=== PATIENT | female | born 1960 | race American Indian/Alaskan Native ===

== ENCOUNTER 2018-03-13 18:29 | Observation (INO) | payer OTHER ==
[2018-03-13 19:07] VITALS: BMI 30.4
--- NOTE | 2018-03-13 19:48 | PDOC ---
History of Present Illness - General Chief Complaint: Chest Pain Stated Complaint: PAIN, ACUTE - History of Present Illness Initial Comments: The patient is a 57F w/ a history of T2DM and HTN who presents for 2d of intermittent, sharp/burning, non-radiating, left-sided chest pain, that radiates towards her flank as a 'tingling' sensation. The patient is not able to identify any exacerbating or alleviating factors. The patient has never had pain like this before. She states it most commonly occurs at rest and will resolve spontaneously from minutes to hours. The patient denies fevers/chills, SOB, abdominal pain, N/V/C/D, dysuria, or blood in her urine or stool. She denies rash, injury, or recent cough/illness. 03/13/18 19:43 Past History - Past Medical History Allergies/Adverse Reactions: Allergies Allergy/AdvReac Type Severity Reaction Status Date / Time Sulfa (Sulfonamide Allergy Intermediate Hives Verified 03/13/18 20:24 Antibiotics) Home Medications: Ambulatory Orders metFORMIN XR [Glucophage Xr -] 500 mg PO BID 10/17/14 Aspirin 81 mg PO DAILY 03/13/18 Liraglutide [Victoza -] 1.2 mg SQ DAILY@0700 03/13/18 Metoprolol Succinate [Toprol Xl] 25 mg PO DAILY 03/13/18 COPD: No Diabetes: Yes HTN: Yes Hypercholesterolemia: Yes - Suicide/Smoking/Psychosocial Hx Smoking History: Never smoked Hx Alcohol Use: No Drug/Substance Use Hx: No Review of Systems - Review of Systems Able to Perform ROS?: Yes Comments:: GENERAL/CONSTITUTIONAL: No fever or chills. No weakness HEAD, EYES, EARS, NOSE AND THROAT: No acute change in vision. No ear pain or discharge. No sore throat CARDIOVASCULAR: per HPI RESPIRATORY: No cough, wheezing, or hemoptysis GASTROINTESTINAL: No nausea, vomiting, diarrhea or constipation GENITOURINARY: No dysuria, frequency, or change in urination MUSCULOSKELETAL: No joint or muscle swelling or pain. No neck or back pain SKIN: No rash NEUROLOGIC: No vertigo, loss of consciousness, or change in strength/sensation HEMATOLOGIC/LYMPHATIC: No anemia, easy bleeding, or history of blood clots ALLERGIC/IMMUNOLOGIC: No hives or skin allergy 03/13/18 20:32 Is the patient limited Belgian proficient: No *Physical Exam - Vital Signs Last Vital Signs Temp Pulse Resp BP Pulse Ox 98.7 F 90 20 156/79 99 03/13/18 19:00 03/13/18 19:00 03/13/18 19:00 03/13/18 19:00 03/13/18 19:00 - Physical Exam Comments: GENERAL: Awake, alert, and fully oriented, in no acute distress HEAD: No signs of trauma, normocephalic, atraumatic EYES: PERRL, EOMI, sclera anicteric, conjunctiva clear ENT: Hearing grossly normal, nares patent, oropharynx clear without exudates. Moist mucosa NECK: Normal ROM, supple, no lymphadenopathy CHEST: No rash, no TTP on lateral compression LUNGS: No distress, speaks full sentences, clear to auscultation bilaterally HEART:Regular rate and rhythm, normal S1 and S2, no murmurs appreciated, peripheral pulses normal and equal bilaterally ABDOMEN: Soft, nontender, normoactive bowel sounds. No guarding, no rebound. No masses EXTREMITIES : Normal inspection, Normal range of motion, no edema. No clubbing or cyanosis NEUROLOGICAL: Cranial nerves II through XII grossly intact. Normal speech, normal gait, no focal sensorimotor deficits SKIN: Warm, Dry, normal turgor, no rashes or lesions noted 03/13/18 20:33 Heart Score/ECG Review - History History: Slightly suspicious - Electrocardiogram EKG: Normal - Age Age: 45-65 - Risk Factors Risk Factors Heart Score: Yes Hx Hypertension, Yes Hx Diabetes, Yes Hx Obesity Based on the list above the patient has:: >/=3 risk factors or Hx atherosclerotic disease - Troponin Troponin: </= normal limit - Score Heart Score - Total: 3 ED Treatment Course - LABORATORY CBC & Chemistry Diagram: 03/13/18 19:40 03/13/18 19:40 - RADIOLOGY Radiology Studies Ordered: Category Date Time Status CHEST PA & LAT [RAD] Stat Radiology 03/13/18 19:38 Ordered Medical Decision Making - Medical Decision Making The patient is a 57F w/ a history of T2DM and HTN who presents with 2d of L- sided, intermittent, sharp/burning chest pain that occurs mostly at rest. FHx sig for F 2/2 IA and Brother with hx of IA HEART Score 3 ED Course CMP, CBC, Cardiac Profile ECG CXR Will plan for Obs Tele admission for ACS r/o given strong family history and new onset of symptoms 03/13/18 19:53 Initial Trop I neg CXR w/o evidence of acute cardiopulmonary pathology 03/13/18 20:40 Lytes wnl No leukocytosis ECG NSR without signs of acute ischemia Patient states pain is still 4-5/10 at this time but does not desire pain medication. She is laying comfortably in bed, in no distress, speaking in full sentences on room air. Dispo: Tele obs for ACS r/o. Will repeat Trop I at three hours 03/13/18 21:04 *DC/Admit/Observation/Transfer Diagnosis at time of Disposition: ACS (acute coronary syndrome) HTN (hypertension) Qualifiers: Hypertension type: unspecified Qualified Code(s): I10 - Essential (primary) hypertension T2DM (type 2 diabetes mellitus) Qualifiers: Diabetes mellitus fci insulin use: unspecified fci insulin use status Diabetes mellitus complication status: with unspecified complications Qualified Code(s): E11.8 - Type 2 diabetes mellitus with unspecified complications - Discharge Dispostion Condition at time of disposition: Good Decision to Admit order: Yes - Referrals - Patient Instructions - Post Discharge Activity
--- NOTE | 2018-03-13 19:50 | PDOC ---
Attending Attestation - HPI HPI: 03/13/18 20:55 The patient is a 57-year-old female with past medical history significant for HTN, HLD, and DM presents to the emergency department with 2 days of chest pain. The patient reports the symptoms have been intermittent since onset. The patient indicates the symptoms are located on the L. lower chest pain, burning in character, with intermittent diffusion across the chest. The patient states the pain is strongest while shes driving or sleeping on her side, with a tingling sensation radiating down the L. flank region. The patient reports the symptoms are slightly improved by remaining still and denies exacerbation with deep breathing. The patient reports an additional concern of a headache. Denies recent illness, shortness of breath, nausea, vomiting, diarrhea, constipation, cough or injury to the chest wall. Allergies: Sulfa Social history: No past or present use of tobacco, alcohol or recreational drug use. Surgical history: None reported. PCP: Adam Waller - Physicial Exam PE: 03/13/18 20:57 GENERAL: The patient is in no acute distress. LUNGS: Breath sounds equal, clear to auscultation bilaterally. No wheezes, and no crackles. HEART:Regular rate and rhythm, normal S1 and S2 without murmur, rub or gallop. ABDOMEN: Soft, nontender, normoactive bowel sounds. No guarding, no rebound. No masses palpable. EXTREMITIES: Normal range of motion, no edema. No clubbing or cyanosis. No erythema, or tenderness. - Medical Decision Making 03/13/18 20:55 Documentation prepared by Sharyn Pang, acting as medical receptionist for Melissa Camarillo MD. <Sharyn Pang - Last Filed: 03/13/18 20:57> - Resident Resident Name: Jose Francisco Stephens - ED Attending Attestation I have performed the following: I have examined & evaluated the patient, The case was reviewed & discussed with the resident, I agree w/resident's findings & plan, Exceptions are as noted - Medical Decision Making 03/13/18 20:41 57 yo F presenting to the ER with 3 days intermittent chest pain No shortness of breath, nausea, diaphoresis Pt h/o HTN, DM, strong family history. Will plan to place on observation After labs 03/13/18 20:54 Laboratory Tests 03/13/18 19:40 Creatine Kinase 66 Troponin I < 0.02 CXR: EKG: Twelve-lead EKG was performed and reviewed by me. There is normal sinus rhythm with a normal rate. The axis is normal. The intervals are normal. There are no ST or T wave abnormalities. Impression: Normal twelve-lead EKG 03/13/18 22:05 Place on observation Clinical Impression: chest pain, initial presentation <Melissa Camarillo - Last Filed: 03/15/18 07:51> Heart Score/ECG Review - History History: Slightly suspicious - Electrocardiogram EKG: Normal - Age Age: 45-65 - Risk Factors Risk Factors Heart Score: Yes Hx Hypertension, Yes Hx Diabetes, Yes Hx Obesity Based on the list above the patient has:: >/=3 risk factors or Hx atherosclerotic disease - Troponin Troponin: </= normal limit - Score Heart Score - Total: 3 <Melissa Camarillo - Last Filed: 03/15/18 07:51>
[2018-03-13 19:56] LABS: HEMATOCRIT 35.6 % (32.4-45.2); HEMOGLOBIN 11.8 GM/dL (10.7-15.3); MCH 25.3 pg (25.7-33.7); MEAN CELL VOLUME 76.6 fl (80-96); MEAN PLT VOLUME 8.6 fl (7.5-11.1); PLATELET COUNT 350 K/MM3 (134-434); RBC 4.64 M/mm3 (3.60-5.2); RDW 14.1 % (11.6-15.6); WHITE BLOOD COUNT 12.6 K/mm3 (4.0-10.0)
[2018-03-13 20:26] LABS: ALBUMIN 3.9 g/dl (3.4-5.0); ALK PHOS 79 U/L (45-117); ANION GAP 8 MMOL/L (8-16); BILIRUBIN,TOTAL 1.1 mg/dL (0.2-1); BLOOD UREA NITROGEN 10 mg/dL (7-18); CALCIUM 9.5 mg/dL (8.5-10.1); CHLORIDE 108 mmol/L (98-107); CO2 26 mmol/L (21-32); CREATININE 0.6 mg/dL (0.55-1.3); GLUCOSE,RANDOM 75 mg/dL (74-106); POTASSIUM 4.4 mmol/L (3.5-5.1); SGOT/AST 16 U/L (15-37); SGPT/ALT 31 U/L (13-61); SODIUM 142 mmol/L (136-145); TOT PROT 7.7 g/dl (6.4-8.2)
--- NOTE | 2018-03-13 21:34 | PN ---
Teaching Attending Note Name of Resident: Oracio Teresa ATTENDING PHYSICIAN STATEMENT I saw and evaluated the patient. I reviewed the resident's note and discussed the case with the resident. I agree with the resident's findings and plan as documented. SUBJECTIVE: Patient is a 57 year old woman with a history of NIDDM and HTN who presents for intermittent, sharp/burning, non-radiating, left-sided chest pain for two days. Pain radiates towards her flank as a 'tingling' sensation. The patient is not able to identify any exacerbating or alleviating factors. The patient has never had pain like this before. She states it most commonly occurs at rest and will resolve spontaneously from minutes to hours. The patient denies fevers/chills, SOB, abdominal pain, nausea, vomiting or dysuria. She has a FH of CAD. OBJECTIVE: Alert Vital Signs Period Temp Pulse Resp BP Sys/Brennan Pulse Ox Last 24 Hr 98.7 F 82-90 17-20 156-170/79-95 98-99 HEENT: No Jaundice, eye redness or discharge, PERRLA, EOMI. Normocephalic, atraumatic. External ears are normal and hearing is grossly intact. No nasal discharge. Neck: Supple, nontender. No palpable adenopathy or thyromegaly. No JVD Chest: Good effort. Clear to auscultation and percussion. Heart: Regular. No S3, rub or murmur Abdomen: Not distended, soft, nontender and no HSM. No rebound or guarding. Normoactive bowel sounds. Ext: Peripheral pulses intact. No leg edema. Skin: Warm and dry. No petechiae, rash or ecchymosis. Neuro: Alert. Oriented x3. CN 2-12 grossly intact. Sensation grossly intact in all four extremities and DTR are symmetric. Home Medications Medication Instructions Recorded metFORMIN XR [Glucophage Xr -] 500 mg PO BID 10/17/14 Aspirin 81 mg PO DAILY 03/13/18 Liraglutide [Victoza -] 1.2 mg SQ DAILY@0700 03/13/18 Metoprolol Succinate [Toprol Xl] 25 mg PO DAILY 03/13/18 Abnormal Lab Results 03/13/18 03/13/18 19:40 19:40 WBC 12.6 H MCV 76.6 L MCH 25.3 L Chloride 108 H Total Bilirubin 1.1 H ASSESSMENT AND PLAN: 1. Chest pain - Pain is atypical, but she has risk factors as well as a family history of CAD. No acute changes of ACS on EKG. Will admit to telemetry to rule out ACS. Get ECHO, fasting lipids and consult cardiology. Add Lisinopril 20 mg po bid and strive for normotension. Leukocytosis is unexplained. CXR show RLL atelectasis. She is afebrile. Will repeat CBC. 2. DM - For now, we will hold the home diabetes drugs and implement sliding scale insulin regimen. Provide comprehensive diabetes care with patient teaching and counseling about the importance of euglycemia, eye care and foot care. 3. Obesity - Will provide patient all the necessary assistance , counseling and positive reinforcement to facilitate weight loss. Consult nozzle and sleeve worker. 4. DVT prophylaxis - Lovenox 40 mg SQ q 24 hours. 5. Advance directives - Full code
--- NOTE | 2018-03-13 22:07 | HP ---
CHIEF COMPLAINT: chest pain PCP: HISTORY OF PRESENT ILLNESS: Patient is a 57 year old female with history significant for anxiety, depression , HTN, HLD, DM, presents with chest pain ongoing for the past 2-3 days. Pain is sharp, localized to the midline chest, as well as left lateral chest, and radiates interiorly along the flank, described as "tingling" in nature. States that the pain occurs mainly during rest when she is lying down and is associated with headache. Headache described as tightness around the head, with blurry vision that resolves shortly afterwards. Denies falls, trauma to head, loss of consciousness. Denies fevers, chills, shortness of breath, abdominal pain, nausea, vomiting, diarrhea, constipation, dysuria, hematuria. ER course was notable for: (1) CBC, CMP (2) EKG, Troponin 0.02 (3) CXR Recent Travel: PAST MEDICAL HISTORY: anxiety, depression, HTN, HLD, DM PAST SURGICAL HISTORY: Social History: Smoking: denies Alcohol: denies Drugs: denies Family History: Allergies Sulfa (Sulfonamide Antibiotics) Allergy (Intermediate, Verified 03/13/18 20:24) Hives HOME MEDICATIONS: Home Medications Medication Instructions Recorded metFORMIN XR [Glucophage Xr -] 500 mg PO BID 10/17/14 Aspirin 81 mg PO DAILY 03/13/18 Liraglutide [Victoza -] 1.2 mg SQ DAILY@0700 03/13/18 Metoprolol Succinate [Toprol Xl] 25 mg PO DAILY 03/13/18 REVIEW OF SYSTEMS CONSTITUTIONAL: Absent: fever, chills, diaphoresis, generalized weakness. HEENT: ADmits: blurry vision. Absent: rhinorrhea, nasal congestion, throat swelling, difficulty swallowing, mouth swelling, CARDIOVASCULAR: Admits: chest pain, palpitations, Absent: syncope, irregular heart rate, peripheral edema RESPIRATORY: Absent: cough, shortness of breath, wheezing, hemoptysis GASTROINTESTINAL: Absent: abdominal pain, abdominal distension, nausea, vomiting, diarrhea, constipation, melena, hematochezia GENITOURINARY: Absent: dysuria, frequency, urgency, hesitancy, hematuria, SKIN: Absent: rash, pruritis, pallor NEUROLOGIC: Admits headache, parasthesias. Absent: focal weakness, dizziness, unsteady gait , bladder or bowel incontinence PSYCHIATRIC: Admits: anxiety, depression. Absent: suicidal or homicidal ideation, hallucinations. PHYSICAL EXAMINATION Vital Signs - 24 hr 03/13/18 03/13/18 19:00 20:28 Temperature 98.7 F Pulse Rate 90 82 Pulse Rate [ 82 Left Radial] Respiratory 20 17 Rate Blood Pressure 156/79 Blood Pressure 170/95 [Right] O2 Sat by Pulse 99 98 Oximetry (%) GENERAL: Awake, alert, and fully oriented, in no acute distress. HEAD: Normal with no signs of trauma. EYES: Pupils equal, round and reactive to light, extraocular movements intact, sclera icteric b/l, conjunctiva clear. EARS, NOSE, THROAT: Ears normal, nares patent, oropharynx clear without exudates. Moist mucous membranes. NECK: Normal range of motion, supple without lymphadenopathy. LUNGS: Breath sounds equal, clear to auscultation bilaterally. No wheezes, and no crackles. No accessory muscle use. HEART: Regular rate and rhythm, normal S1 and S2 with 2/6 holosystolic murmur at left sternal border. Chest pain partially reproducible upon palpation, however not at full intensity that she feels. ABDOMEN: Soft, nontender, not distended, normoactive bowel sounds, no guarding, no rebound, no masses. No hepatomegaly or splenomegaly. MUSCULOSKELETAL: Normal range of motion at all joints. No bony deformities or tenderness. UPPER EXTREMITIES: 2+ pulses, warm. Strength 5/5 b/l upper extremities. LOWER EXTREMITIES: 2+ pulses, warm, well-perfused. No calf tenderness b/l. No peripheral edema b/l. Strength 5/5 b/l lower extremities. NEUROLOGICAL: Cranial nerves II-XII intact. Normal speech. PSYCHIATRIC: Cooperative. Good eye contact. Appropriate mood and affect upon my encounter. SKIN: Warm, dry, normal turgor, no rashes or lesions noted. Laboratory Results - last 24 hr 03/13/18 03/13/18 19:40 19:40 WBC 12.6 H RBC 4.64 Hgb 11.8 Hct 35.6 MCV 76.6 L MCH 25.3 L MCHC 33.0 RDW 14.1 Plt Count 350 MPV 8.6 Sodium 142 Potassium 4.4 Chloride 108 H Carbon Dioxide 26 Anion Gap 8 BUN 10 Creatinine 0.6 Creat Clearance w eGFR > 60 Random Glucose 75 Calcium 9.5 Total Bilirubin 1.1 H AST 16 ALT 31 Alkaline Phosphatase 79 Creatine Kinase 66 Troponin I < 0.02 Total Protein 7.7 Albumin 3.9 ASSESSMENT/PLAN: Patient is a 57 year old female with history significant for anxiety, depression , HTN, HLD, DM, presents with chest pain ongoing for the past 2-3 days. Chest pain -Atypical, partially reproducible upon palpation. Associated with anxiety- provoking thoughts, occurign at rest. -EKG showed NSR at 86 BPM without ischemic changes -First troponin 0.02 -F/U serial troponins, and EKG -Cardiac monitoring -F/U cardiac ECHO -F/U lipid panel -F/U cardiology consult (Dr. Monika Mclain) Leukocytosis -Unclear etiology -CXR shows ?RLL atelectasis. Will F/U official read. -F/U UA Hypertension -Continue Metoprolol 25mg PO daily -Lisinopril 20mg PO BID Diabetes -Hold oral hypoglycemics -ISS -BGM ACHS FEN -No IV fluids. Encourage judicious oral hydration -Will follow CMP -Diabetic diet Prophylaxis -Lovenox 40mg subq TID Disposition -Telemetry observation Visit type - Emergency Visit Emergency Visit: Yes ED Registration Date: 03/13/18 Care time: The patient presented to the Emergency Department on the above date and was hospitalized for further evaluation of their emergent condition. - New Patient This patient is new to me today: Yes Date on this admission: 03/14/18 - Critical Care Critical Care patient: No Hospitalist Screening - Colonoscopy Questionnaire Colonoscopy Questionnaire: Colonoscopy Questionnaire - Patient: 50 - 75 years old and never had a screening colonoscopy: Unknown History of colon or rectal polyps, or CA: Unknown History of IBD, Crohn's disease or UC: Unknown History of abdominal radiation therapy as a child: Unknown - Relative: 1 with colon or rectal CA, or polyps at age 60 or younger: Unknown Colon or rectal CA diagnosed at age 45 or younger: Unknown Multiple relatives with colon or rectal CA: Unknown - Outcome: Screening Result: Negative Screen
[2018-03-13] MEDS ORDERED: LISINOPRIL 20 MG TABLET (FP) PO ONE (22:12)
[2018-03-13] MEDS ORDERED: LISINOPRIL 20 MG TABLET (FP) ONE (22:21)
[2018-03-13 23:17] LABS: URINE APPEARANCE CLEAR; URINE BILIRUBIN NEGATIVE (<2.0 mg/dL); URINE COLOR LTYELLOW; URINE GLUCOSE (UA) NEGATIVE (NEGATIVE); URINE KETONE NEGATIVE (NEGATIVE); URINE LEUK ESTERASE NEGATIVE (NEGATIVE); URINE NITRITE NEGATIVE (NEGATIVE); URINE PROTEIN NEGATIVE (NEGATIVE); URINE UROBILINOGEN NEGATIVE mg/dL (0.2-1.0)
[2018-03-14 06:15] LABS: BASO % 0.6 % (0-2.0); EOS % 2.3 % (0-4.5); HEMATOCRIT 34.1 % (32.4-45.2); HEMOGLOBIN 11.2 GM/dL (10.7-15.3); LYMPH % 46.1 % (8-40); MCH 25.2 pg (25.7-33.7); MCHC 32.9 g/dl (32.0-36.0); MEAN CELL VOLUME 76.7 fl (80-96); MEAN PLT VOLUME 8.2 fl (7.5-11.1); MONO % 6.2 % (3.8-10.2); NEUT % 44.8 % (42.8-82.8); PLATELET COUNT 285 K/MM3 (134-434); RBC 4.45 M/mm3 (3.60-5.2); WHITE BLOOD COUNT 12.6 K/mm3 (4.0-10.0)
[2018-03-14 06:56] LABS: ALBUMIN 3.4 g/dl (3.4-5.0); ALK PHOS 73 U/L (45-117); ANION GAP 7 MMOL/L (8-16); BLOOD UREA NITROGEN 14 mg/dL (7-18); CALCIUM 8.9 mg/dL (8.5-10.1); CHLORIDE 105 mmol/L (98-107); CO2 26 mmol/L (21-32); CREATININE 0.6 mg/dL (0.55-1.3); GLUCOSE,RANDOM 98 mg/dL (74-106); MAGNESIUM 1.7 mg/dL (1.8-2.4); PHOSPHOROUS 4.5 mg/dL (2.5-4.9); SGOT/AST 18 U/L (15-37); SGPT/ALT 29 U/L (13-61); SODIUM 139 mmol/L (136-145)
[2018-03-14] MEDS ORDERED: MAGNESIUM SULF 50% (8.12 MEQ/2 ML-1 GM VIAL) IVPB ONE (08:15)
[2018-03-14] MEDS: LISINOPRIL 20 MG TABLET (FP) PO SCH ×2 (09:37→09:42)
[2018-03-14] MEDS: metoPROLOL SUCCINATE 25 MG TAB.SR.24H (FP) PO SCH ×2 (09:37→09:42)
[2018-03-14 09:45] LABS: CHOLESTEROL 142 mg/dL (50-200); HDL CHOLESTEROL 41 mg/dL (40-60); TRIGLYCERIDES 143 mg/dL (0-150)
[2018-03-14] MEDS ORDERED: CITALOPRAM HYDROBROMIDE 20 MG TABLET (FP) PO ONE (11:51)
[2018-03-14] MEDS ORDERED: clonazePAM 0.5 MG TABLET PO PRN (11:52)
[2018-03-14] MEDS: ENOXAPARIN NA (PORCINE) 40 MG/0.4 ML DISP.SYRIN SQ SCH (12:06)
--- NOTE | 2018-03-14 13:34 | PN ---
Progress Note (short form) - Note Progress Note: Subjective: No fever or chills. No abd pain, No TURNER , nO CP , no SOB. she reported few episodes of sharp CP under her L breast with tingling in LUQ in past 3 days . pain was severe to 10 /10 at some point. it would last 2-3 min and resolve. no relation to exertion. never had Cp before. has strong family h/ premature CAD. had stress test in November and echo and was told it was normal. Objective: Vital Signs: Last Vital Signs Temp Pulse Resp BP Pulse Ox 98 F 88 18 140/80 98 03/14/18 09:00 03/14/18 09:00 03/14/18 09:00 03/14/18 09:00 03/14/18 09:00 Laboratory Results - last 24 hr 03/13/18 03/13/18 03/13/18 19:40 19:40 23:00 WBC 12.6 H RBC 4.64 Hgb 11.8 Hct 35.6 MCV 76.6 L MCH 25.3 L MCHC 33.0 RDW 14.1 Plt Count 350 MPV 8.6 Absolute Neuts (auto) Neutrophils % Lymphocytes % Monocytes % Eosinophils % Basophils % Nucleated RBC % Sodium 142 Potassium 4.4 Chloride 108 H Carbon Dioxide 26 Anion Gap 8 BUN 10 Creatinine 0.6 Creat Clearance w eGFR > 60 POC Glucometer Random Glucose 75 Calcium 9.5 Phosphorus Magnesium Total Bilirubin 1.1 H AST 16 ALT 31 Alkaline Phosphatase 79 Creatine Kinase 66 Troponin I < 0.02 Total Protein 7.7 Albumin 3.9 Triglycerides Cholesterol Total LDL Cholesterol HDL Cholesterol Urine Color Ltyellow Urine Appearance Clear Urine pH 5.0 Ur Specific [place] 1.015 Urine Protein Negative Urine Glucose (UA) Negative Urine Ketones Negative Urine Blood Negative Urine Nitrite Negative Urine Bilirubin Negative Urine Urobilinogen Negative Ur Leukocyte Esterase Negative 03/14/18 03/14/18 03/14/18 00:31 05:03 05:03 WBC 12.6 H RBC 4.45 Hgb 11.2 Hct 34.1 MCV 76.7 L MCH 25.2 L MCHC 32.9 RDW 14.0 Plt Count 285 MPV 8.2 Absolute Neuts (auto) 5.6 Neutrophils % 44.8 Lymphocytes % 46.1 H Monocytes % 6.2 Eosinophils % 2.3 Basophils % 0.6 Nucleated RBC % 0 Sodium 139 Potassium 4.0 Chloride 105 Carbon Dioxide 26 Anion Gap 7 L BUN 14 Creatinine 0.6 Creat Clearance w eGFR > 60 POC Glucometer Random Glucose 98 Calcium 8.9 Phosphorus 4.5 Magnesium 1.7 L Total Bilirubin 1.0 AST 18 ALT 29 Alkaline Phosphatase 73 Creatine Kinase 63 Troponin I < 0.02 Total Protein 7.0 Albumin 3.4 Triglycerides 143 Cholesterol 142 Total LDL Cholesterol 88 HDL Cholesterol 41 Urine Color Urine Appearance Urine pH Ur Specific [place] Urine Protein Urine Glucose (UA) Urine Ketones Urine Blood Urine Nitrite Urine Bilirubin Urine Urobilinogen Ur Leukocyte Esterase 03/14/18 03/14/18 05:03 06:44 WBC RBC Hgb Hct MCV MCH MCHC RDW Plt Count MPV Absolute Neuts (auto) Neutrophils % Lymphocytes % Monocytes % Eosinophils % Basophils % Nucleated RBC % Sodium Potassium Chloride Carbon Dioxide Anion Gap BUN Creatinine Creat Clearance w eGFR POC Glucometer 103 Random Glucose Calcium Phosphorus Magnesium Total Bilirubin AST ALT Alkaline Phosphatase Creatine Kinase Troponin I Total Protein Albumin Triglycerides Cancelled Cholesterol Cancelled Total LDL Cholesterol Cancelled HDL Cholesterol Cancelled Urine Color Urine Appearance Urine pH Ur Specific [place] Urine Protein Urine Glucose (UA) Urine Ketones Urine Blood Urine Nitrite Urine Bilirubin Urine Urobilinogen Ur Leukocyte Esterase Physical Exam: NAD Cv: RRR, no MRG Lungs: CTAB Ext: no edema no TTP over chest wall Assessment/Plan: 57 y/o lady with h/o HTN, depression, hyperlipidemia, anxiety, DM , and family h /o premature CAD, who presented with PC 1- CP: CP characteristics indicate atypical CP. EKG with sinus rhythm with no ischemic changes. trop nl x2. she has strong family hx of premature CAd and has risk factors, but she had a stress test a year ago, which is reassuring - tele - I don't feel a stress test is indicated but will confirm with card - cont her BB , ASA , ARB - if no stress test to be done, then card f/u as out pt 2- HTN: cont ARB and BB 3- Dm ; SSI here meds were confirmed with her, and updated in AUG. if nO stress test is indicated , then dc home . Visit type - Emergency Visit Emergency Visit: Yes ED Registration Date: 03/13/18 Care time: The patient presented to the Emergency Department on the above date and was hospitalized for further evaluation of their emergent condition. - New Patient This patient is new to me today: Yes Date on this admission: 03/14/18 - Critical Care Critical Care patient: No
--- NOTE | 2018-03-14 17:06 | EKG ---
Test Reason : Blood Pressure : / mmHG Vent. Rate : 089 BPM Atrial Rate : 089 BPM P-R Int : 158 ms QRS Dur : 076 ms QT Int : 376 ms P-R-T Axes : 044 003 037 degrees QTc Int : 457 ms NORMAL SINUS RHYTHM NORMAL ECG NO PREVIOUS ECGS AVAILABLE Confirmed by MD Sutton Daniel ([id number]) on 03/14/2018 5:06:40 PM Referred By: Confirmed By:Chun Sutton MD
[2018-03-14] MEDS ORDERED: ATORVASTATIN CA 20 MG TABLET (FP) PO SCH (22:00)
[2018-03-15] MEDS ORDERED: CITALOPRAM HYDROBROMIDE 20 MG TABLET (FP) PO SCH (10:00)
[2018-03-15] MEDS ORDERED: LISINOPRIL 20 MG TABLET (FP) PO SCH (10:00)
[2018-03-15] MEDS ORDERED: metoPROLOL SUCCINATE 25 MG TAB.SR.24H (FP) PO SCH (10:00)
[2018-03-15] MEDS ORDERED: VALSARTAN 160 MG TABLET (UD) PO SCH (10:00)
[2018-03-15] MEDS ORDERED: ASPIRIN 81 MG CHEWABLE TABLETS PO SCH (10:00)
--- NOTE | 2018-03-15 10:31 | CON.CARD ---
Consult Consult Specialty:: Cardiology Referred by:: Hospitalist Medicine Reason for Consultation:: Atypical chest pain - History of Present Illness Chief Complaint: Atypical chest pain History of Present Illness: Patient is a 57 year old woman with a history of NIDDM, hyperlipidemia and HTN who presented for intermittent, sharp/burning, stabbing, non-exertional left- sided chest pain for two days. Pain radiates towards her flank as a 'tingling' sensation. The patient is not able to identify any exacerbating or alleviating factors. The patient has never had pain like this before. She states it most commonly occurs at rest and will resolve spontaneously from minutes to hours. The patient denies fevers/chills, SOB, near or true syncope, palpitations, orthopnea, PND or LE edema. She has a FH of premature CAD. PMD: Adam Barbour [phone] - History Source History Provided By: Patient Limitations to Obtaining History: No Limitations - Alcohol/Substance Use Hx Alcohol Use: No - Smoking History Smoking history: Never smoked Home Medications - Allergies Allergies/Adverse Reactions: Allergies Allergy/AdvReac Type Severity Reaction Status Date / Time Sulfa (Sulfonamide Allergy Intermediate Hives Verified 03/13/18 20:24 Antibiotics) - Home Medications Home Medications: Ambulatory Orders metFORMIN XR [Glucophage Xr -] 1,000 mg PO BID 10/17/14 Aspirin 81 mg PO DAILY 03/13/18 Liraglutide [Victoza -] 1.2 mg SQ DAILY@0700 03/13/18 Metoprolol Succinate [Toprol Xl] 25 mg PO DAILY 03/13/18 Atorvastatin Ca [Lipitor] 20 mg PO HS 03/14/18 Citalopram Hydrobromide [Celexa -] 40 mg PO DAILY 03/14/18 Clonazepam [Klonopin] 0.5 mg PO BID 03/14/18 Olmesartan Medoxomil 20 mg PO DAILY 03/14/18 Family Disease History - Family Disease History Family Disease History: Heart Disease: Father (ME), Brother (CABG), Son (ME) Review of Systems - Review of Systems Constitutional: reports: No Symptoms Eyes: reports: No Symptoms HENT: reports: No Symptoms Neck: reports: No Symptoms Cardiovascular: reports: Chest Pain Respiratory: reports: No Symptoms Gastrointestinal: reports: No Symptoms Genitourinary: reports: No Symptoms Musculoskeletal: reports: No Symptoms Integumentary: reports: No Symptoms Neurological: reports: No Symptoms Endocrine: reports: No Symptoms Vital Signs: Vital Signs Temperature 97.6 F 03/15/18 05:00 Pulse Rate 79 03/15/18 05:00 Respiratory Rate 18 03/15/18 05:00 Blood Pressure 131/75 03/15/18 05:00 O2 Sat by Pulse Oximetry (%) 97 03/14/18 21:00 Constitutional: Yes: No Distress, Calm, Thin Neck: Yes: Supple Respiratory: Yes: Regular, CTA Bilaterally Gastrointestinal: Yes: Normal Bowel Sounds, Soft Cardiovascular: Yes: Regular Rate and Rhythm JVD: No Carotid Bruit: No Heart Sounds: Yes: S1, S2 Edema: No - Other Data Labs, Other Data: CBC, BMP 03/14/18 05:03 03/14/18 05:03 NSR @ [address]-T changes Tele: NSR Ejection Fraction %: LVEF > or = 40 % Imaging - Results Chest X-ray: Report Reviewed (NAD) Problem List - Problems (1) Hyperlipidemia Code(s): E78.5 - HYPERLIPIDEMIA, UNSPECIFIED Qualifiers: Hyperlipidemia type: pure hypercholesterolemia Qualified Code(s): E78.00 - Pure hypercholesterolemia, unspecified; E78.0 - Pure hypercholesterolemia (2) Atypical chest pain Code(s): R07.89 - OTHER CHEST PAIN (3) Family history of premature coronary artery disease Code(s): Z82.49 - FAMILY HX OF ISCHEM HEART DIS AND OTH DIS OF THE [facility] (4) HTN (hypertension) Code(s): I10 - ESSENTIAL (PRIMARY) HYPERTENSION Qualifiers: Hypertension type: essential hypertension Qualified Code(s): I10 - Essential (primary) hypertension (5) T2DM (type 2 diabetes mellitus) Code(s): E11.9 - TYPE 2 DIABETES MELLITUS WITHOUT COMPLICATIONS Qualifiers: Diabetes mellitus retirement insulin use: without retirement use Diabetes mellitus complication status: with unspecified complications Qualified Code(s) : E11.8 - Type 2 diabetes mellitus with unspecified complications Assessment/Plan 1. Atypical chest pain syndrome 2. HTN 3. Hyperlipidemia 4. Type 2 DM 5. Family h/o premature CAD P:1. Ruled out for ME 2. Review outpatient records of echo and stress testing performed last year at Dr. Barbour office 3. Continue ASA 81 qd, Toprol XL 25 qd, Lipitor 20 qd, Benicar 20 qd or equivalent 4. D/c planning with f/u in office 5. Thank you for consultative opportunity
[2018-03-15] MEDS: ENOXAPARIN NA (PORCINE) 40 MG/0.4 ML DISP.SYRIN SQ SCH (11:43)
[2018-03-15 14:48] VITALS: BP 126/76; PULSE 78; TEMP 97.8
--- NOTE | 2018-03-15 14:56 | PN ---
Teaching Attending Note Name of Resident: Oracio Teresa ATTENDING PHYSICIAN STATEMENT I saw and evaluated the patient. I reviewed the resident's note and discussed the case with the resident. I agree with the resident's findings and plan as documented. SUBJECTIVE: No fever or chills. No abd pain, no PC , no SOB , no palpitations . OBJECTIVE: NAD Cv: RRR, no MRG Lungs: CTAB Ext: no edema Assessment/Plan: 57 y/o lady with h/o HTN, depression, hyperlipidemia, anxiety, DM , and family h /o premature CAD, who presented with PC 1- Atypical CP: - spoke to Dr. Dr. Barbour. records obtained. stress test in 09/04 with no signs of ischemia. Echo in 2015 with nl EF and no wall motion abnormalities - cont BB , ASA and ARB - follow with card as out pt 2- HTN: cont ARB and BB 3- Dm ; SSI here . cont po meds at dc dispo: dc home today
--- NOTE | 2018-03-15 17:00 | ECHO ---
Name: HEBER SHAH Exam:Adult Echocardiogram Study Date: 03/15/2018 08:30 AM Age: 57 yrs Reason For Study: Chest pain Height: 65 in Weight: 183 lb BSA: 1.9 m2 MMode/2D Measurements & Calculations IVSd: 1.2 cm Ao root diam: 2.8 cm LVIDd: 3.5 cm LA dimension: 3.1 cm LVIDs: 2.5 cm LVPWd: 0.97 cm EDV(Teich): 49.9 ml LAV (MOD-bp): 42.1 ml ESV(Teich): 23.2 ml Doppler Measurements & Calculations MV E max serge: 51.4 cm/sec TR max serge: 212.2 cm/sec MV A max serge: 88.3 cm/sec TR max P.3 mmHg MV E/A: 0.58 MV dec time: 0.15 sec Med Peak E' Serge: 6.0 cm/sec Med E/e': 8.6 Lat Peak E' Serge: 7.8 cm/sec Lat E/e': 6.6 Procedure The study was technically adequate with some images being suboptimal in quality. Left Ventricle The left ventricular size, thickness and function are normal. Ejection Fraction = 60-65%. Grade I larisa stolic dysfunction, (abnormal relaxation pattern). Right Ventricle The right ventricle is normal in size and function. Atria Normal left and right atrial size and function. Mitral Valve The mitral valve is normal in structure and function. There is trace mitral regurgitation. Tricuspid Valve The tricuspid valve is not well visualized, but is grossly normal. There is trace tricuspid regurgita tion. There was insufficient TR detected to calculate RV systolic pressure. Aortic Valve The aortic valve is normal in structure and function. The aortic valve opens well. The aortic valve i s trileaflet. No aortic regurgitation is present. Pulmonic Valve The pulmonic valve is not well visualized. Great Vessels The aortic root is normal size. Pericardium/Pleura There is no pericardial effusion. Interpretation Summary Compared to the prior echo report on 07/10/2015, there is no significant change. The left ventricular size, thickness and function are normal The right ventricle is normal in size and function. There is trace mitral regurgitation. There is trace tricuspid regurgitation. Ejection Fraction = 60-65%. Tre Kaur MD 03/15/2018 05:00 PM
--- NOTE | 2018-03-15 17:20 | DS ---
Physical Exam: SUBJECTIVE: Patient seen and examined at bedside this morning. Denies any chest pain, palpitations, abdominal pain, nausea, vomiting diarrhea. Admits she is feeling much better, and has not had recurrence of chest pressure since admission. OBJECTIVE: Vital Signs Period Temp Pulse Resp BP Sys/Brennan Pulse Ox Last 24 Hr 97.5 F-98 F 78-86 18-20 126-138/75-78 97-99 PHYSICAL EXAM GENERAL: Awake, alert, and fully oriented, in no acute distress. HEAD: Normal with no signs of trauma. EYES: Pupils equal, round and reactive to light, extraocular movements intact, sclera icteric b/l, conjunctiva clear. EARS, NOSE, THROAT: Ears normal, nares patent, oropharynx clear without exudates. Moist mucous membranes. NECK: Normal range of motion, supple without lymphadenopathy. LUNGS: Breath sounds equal, clear to auscultation bilaterally. No wheezes, and no crackles. No accessory muscle use. HEART: Regular rate and rhythm, normal S1 and S2 with 2/6 holosystolic murmur at left sternal border. Chest pain partially reproducible upon palpation, however not at full intensity that she feels. ABDOMEN: Soft, nontender, not distended, normoactive bowel sounds, no guarding, no rebound, no masses. No hepatomegaly or splenomegaly. MUSCULOSKELETAL: Normal range of motion at all joints. No bony deformities or tenderness. UPPER EXTREMITIES: 2+ pulses, warm. Strength 5/5 b/l upper extremities. LOWER EXTREMITIES: 2+ pulses, warm, well-perfused. No calf tenderness b/l. No peripheral edema b/l. Strength 5/5 b/l lower extremities. NEUROLOGICAL: Cranial nerves II-XII intact. Normal speech. PSYCHIATRIC: Cooperative. Good eye contact. Appropriate mood and affect upon my encounter. SKIN: Warm, dry, normal turgor, no rashes or lesions noted. LABS Laboratory Results - last 24 hr 03/14/18 03/14/18 03/15/18 17:08 21:33 06:11 POC Glucometer 145 121 109 03/15/18 12:22 POC Glucometer 134 HOSPITAL COURSE: Date of Admission:03/13/18 Date of Discharge: 03/15/18 Patient is a 57 year old female with history significant for anxiety, depression , HTN, HLD, DM, presents with chest pain ongoing for the past 2-3 days. Pain was partially reproducible upon palpation. EKG showed NSR at 86 BPM without ischemic changes. Troponins were negative X2. ECHO showed LVEF of 65% with normal size thickness and function of LV. Patient had no further complaints of chest pain during admission. Cardiology consult discussed ruled out NV, and outpatient follow up. Patient discharged home with instruction to resume home medications, and follow up with primary care physician and collaborative physician within one week of discharge. Minutes to complete discharge: 35 Discharge Summary Reason For Visit: TYPE 2 DIABETES MELLITUS;CHEST PAIN;HYPERTENSION Current Active Problems Atypical chest pain (Acute) Family history of premature coronary artery disease (Acute) HTN (hypertension) (Chronic) Hyperlipidemia (Chronic) T2DM (type 2 diabetes mellitus) (Chronic) Condition: Improved - Instructions Diet, Activity, Other Instructions: You were observed for chest pain. You EKG and blood studies and echocardiogram, showed no signs of a heart attack. It is important that you follow with collaborative physician Dr. Frank within one week of discharge. Please follow up with your primary care physician within one week after discharge. Continue taking your home medications as prescribed. Please return to the nearest emergency department if you experience any chest pain, palpitations, lightheadedness, change in vision, dizziness, or if you have any fall or trauma. Referrals: lonny Barbour [Other] (Fax number ) Chemo Frank MD [Staff Physician] - 1 Week Disposition: HOME - Home Medications Comprehensive Discharge Medication List: Ambulatory Orders metFORMIN XR [Glucophage Xr -] 1,000 mg PO BID 10/17/14 Aspirin 81 mg PO DAILY 03/13/18 Liraglutide [Victoza -] 1.2 mg SQ DAILY@0700 03/13/18 Metoprolol Succinate [Toprol Xl] 25 mg PO DAILY 03/13/18 Atorvastatin Ca [Lipitor] 20 mg PO HS 03/14/18 Citalopram Hydrobromide [Celexa -] 40 mg PO DAILY 03/14/18 Clonazepam [Klonopin] 0.5 mg PO BID 03/14/18 Olmesartan Medoxomil 20 mg PO DAILY 03/14/18 This patient is new to me today: No Emergency Visit: Yes ED Registration Date: 03/13/18 Care time: The patient presented to the Emergency Department on the above date and was hospitalized for further evaluation of their emergent condition. Critical Care patient: No - Discharge Referral Referred to [facility] No
== END 2018-03-15 18:04 | disposition home or self-care (01) ==
LOC: JER 18:29 → JERBED 20:09 → J4W 23:38
PROVIDERS: ADMIT Internal Medicine; ATTEND Internal Medicine
PROC: 3E033GC Introduction of Other Therapeutic Substance into Peripheral Vein, Percutaneous Approach (ICD-10-PCS; principal; 2018-03-13)
PROC: 3E013GC Introduction of Other Therapeutic Substance into Subcutaneous Tissue, Percutaneous Approach (ICD-10-PCS; 2018-03-13)
DX: R07.89 Other chest pain (principal); I10 Essential (primary) hypertension; E11.8 Type 2 diabetes mellitus with unspecified complications; E78.5 Hyperlipidemia, unspecified; E66.9 Obesity, unspecified; Z68.30 Body mass index [BMI] 30.0-30.9, adult; Z79.82 Long term (current) use of aspirin; Z79.84 Long term (current) use of oral hypoglycemic drugs; Z88.2 Allergy status to sulfonamides; D72.829 Elevated white blood cell count, unspecified; Z82.49 Family history of ischemic heart disease and other diseases of the circulatory system
CPT/HCPCS: 36415; 71046-TC-FY; 80053; 80061; 81003; 82550; 82962; 83721; 83735; 84100; 84484; 85025; 85027; 93005; 93010; 93306-TC; 99284-25; G0378

== ENCOUNTER 2022-06-13 09:08 | Emergency (ER) | payer OTHER ==
[2022-06-13 09:27] VITALS: BP 158/79; PULSE 108; RESP 18; TEMP 101.1; BMI 26.6
[2022-06-13] MEDS ORDERED: ACETAMINOPHEN 500 MG TABLET (FP) PO ONE (09:57)
== END 2022-06-13 10:47 | disposition home or self-care (01) ==
LOC: JER 09:08
DX: J09.X2 Influenza due to identified novel influenza A virus with other respiratory manifestations (principal); R05.1 Acute cough; R50.9 Fever, unspecified; R09.81 Nasal congestion
CPT/HCPCS: 0241U-QW; 99283-25